=== PATIENT | male | born 1995 | race Caucasian/White ===

== ENCOUNTER 2019-10-09 03:03 | Emergency (ER) | payer SELFPAY ==
[2019-10-09 03:08] VITALS: BP 172/98; PULSE 79; RESP 14; TEMP 36.4; O2SAT 99; BMI 27.1
--- NOTE | 2019-10-09 03:11 | ED_ITS ---
HPI - Dental/Oral General: Chief complaint: Dental/Oral Stated complaint: dental pain Time Seen by Provider: 10/09/19 03:10 History of Present Illness: HPI Narrative: Cain is a 24-year-old male comes in complaining of left upper dental pain. The patient states the pain is been present for the past 2 days and getting progressively worse. He denies any naus ea or vomiting or facial swelling. Denies any difficulty swallowing, difficulty breathing, change to his voice or feeling of deep space infection. Associated symptoms: Denies ear or mastoid pain, fever(s), odynophagia or tongue swelling Review of Systems Const: Denies: fever(s), chills, body aches, fatigue, malaise or diaphoresis Eyes: Denies: change in vision, blurry vision, blind spots or photophobia ENMT: Reports: other (See HPI); Denies: throat pain, odynophagia, hoarseness, swelling of lips/tongue, ear or mastoid pain, ear discharge, change in hearing or nasal discharge Card: Denies: chest pain, palpitations, irregular heart rhythm, edema, lightheadedness, syncope, pre-syncope, dyspnea on exertion or orthopnea Resp: Denies: dyspnea, productive cough, non-productive cough, wheezing, hemoptysis or chest congestion GI: Denies: abdominal pain, nausea, vomiting, hematemesis, coffee ground emesis, heartburn, diarrhea, constipation, GI cramping, hematochezia or melena : Denies: flank pain, dysuria, urinary frequency, urinary urgency or hematuria Musc: Denies: neck pain, back pain, extremity pain, extremity swelling, joint pain, joint swelling, joint redness, joint warmth or joint stiffness Skin/Breast: Denies: rash, pruritus, erythema, skin tenderness or jaundice Neuro: Denies: headache(s), numbness in extremities, weakness in extremities, sensory changes, lack of coordination, difficulty walking, dizziness, vertigo, confusion or Slurred speech present Paul/Lymph: Denies: easy bruising, easy bleeding, petechiae, purpura or enlarged lymph nodes All/Imm: Denies: urticaria, throat swelling, tongue swelling, facial swelling or acute wheezing [facility] ED PFSH: Medical History (Updated 10/09/19 @ 03:14 by Lindsay Hewitt) No pertinent past medical history Surgical History (Updated 10/09/19 @ 03:13 by Lindsay Hewitt) No history of previous surgery Social History Smoking and tobacco status: current every day smoker Physical Exam Const: COMMON NORMALS: no acute distress, patient oriented x3, no limitations, healthy appearing and well nourished GENERAL APPEARANCE: cooperative, well kempt and well developed HENMT: COMMON NORMALS: normocephalic, atraumatic, hearing grossly normal bilaterally, external ears normal, EAC's normal, Normal external nose present and moist oral mucous membranes HEAD & SCALP: normocephalic and atraumatic NOSE: Normal external nose present and Normal nares present EXTERNAL EAR: Yes external ears normal EXTERNAL AUDITORY CANAL: EAC's normal MOUTH: Normal oral and palatal mucosa present, lip normal and tongue normal TEETH & GINGIVA IMAGES: 1. Dental caries with tenderness to palpation. No evidence of dental abscess. Eye: COMMON NORMALS: Equal, round and reactive pupils present, EOMs intact bilaterally, conjunctivae normal and no scleral icterus GENERAL EYE: appearance normal, both eyes and all related structures ALIGNMENT: Yes alignment normal PERIORBITAL: periorbital findings normal EYELID: eyelids normal CONJUNCTIVA: Yes conjunctivae normal SCLERA: sclerae normal PUPIL: Yes Equal, round and reactive pupils present Neck/C-Spine: COMMON NORMALS: full ROM, no lymphadenopathy, supple, no meninge al signs and no JVD GENERAL: Yes normal visual inspection and Yes trachea midline Chest: COMMONS NORMALS: normal inspection of the chest and normal palpation of entire chest wall Resp: COMMON NORMALS: normal respiratory effort, No retractions, No use of accessory muscles and clear to auscultation bilaterally EFFORT & INSPECTION: Yes able to speak in complete sentences and Yes symmetric chest movement AUSCULTATION: clear to auscultation bilaterally, no crackles, no rales, no rhonchi and no wheezes Cardio: COMMON NORMALS: no JVD, regular rate, regular rhythm, S1 normal heart sound present, S2 normal heart sound present, No gallops present (Cardio), No clicks present (Cardio), No murmurs present (Cardio) and No rub (Cardio) RATE: regular rate RHYTHM: regular rhythm HEART SOUNDS: S1 normal heart sound present and S2 normal heart sound present GI: COMMON NORMALS: Soft to palpation and No hepatosplenomegaly present PALPATION: Yes Soft to palpation, No Tenderness to palpation present (GI), No Guarding due to palpation present (GI), No Rigid due to palpation, Yes No hepa tosplenomegaly present, No Hernia present, No Palpable mass present and No Pulsatile mass present : COMMON NORMALS: Yes no CVA tenderness BLADDER/KIDNEY EXAM: Yes no CVA tenderness Back/Pelvis: COMMON NORMALS: no CVA tenderness, thoracic and lumbar spine normal to inspection, no thoracic nor lumbar tenderness and thoraco-lumbar ROM normal Extremity: COMMON NORMALS: normal to inspection, full ROM, capillary refill normal, no joint enlargement, no clubbing, cyanosis or edema and no calf tenderness Neuro: COMMON NORMALS: patient oriented x3, CN's II-XII intact bilaterally, moves all extremities, no focal motor deficits and no sensory deficits noted MENINGEAL SIGNS: Yes no meningeal signs SPEECH: speech normal Psych: COMMON NORMALS: mental status grossly normal, Normal thought process present, cooperative, normal affect, speech normal and activity/motor behavior normal APPEARANCE: Yes well kempt SPEECH: Yes normal speech THOUGHT PROCESS: Normal thought process present Skin: COMMON NORMALS: no rashes or lesions noted, turgor normal, no jaundice, no petechiae and no mottling GENERAL SKIN EXAM: no rashes or lesions noted and turgor normal Course Vital Signs: Vital signs: Vital Signs Temperature 97.6 F 10/09/19 03:08 Pulse Rate 79 10/09/19 03:08 Respiratory Rate 14 10/09/19 03:08 Blood Pressure 172/98 10/09/19 03:08 Pulse Oximetry 99 10/09/19 03:08 MDM - Dental/Oral MDM Narrative: Medical decision making narrative: Patient comes in with a pain in his tooth but no evidence of dental abscess. There is no sign of Royal angina, deep space infection, airway issue or otherwise. Patient would like something for pain before he goes. I will also place him on antibiotics. He understands reasons for which to return but at this time he is feeling better and would like to be discharged. Discharge Plan Discharge Patient Disposition: Home, Self-Care Clinical Impression: Toothache, Dental caries Condition: Stable Prescriptions: New clindamycin HCl [Cleocin HCl] 150 mg capsule 300 mg PO Q6H 10 Days Qty: 80 RF: 0 Discharge Orders: Discharge Order (Routine); Ordered 10/09/19 Ordered By: Lindsay Hewitt Referrals: Holland Ryan MD [Primary Care Provider] - 1-3 days Discharge Diet: Advance as tolerated Discharge Activity: Increase activity as tolerated Patient Instructions: Dental Caries (ED), Toothache (ED) Activity Restrictions/Additional Instructions: Please return to the ER immediately for any of the signs or symptoms listed on y our discharge instruction sheets, worsening/changing of your symptoms, you are not getting better as quickly as expected, or for ANY other cause or concerns. Please return to the ER for increased pain, facial swelling, fever, difficulty swallowing, vomiting, or for any other cause for concern. 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
[2019-10-09] MEDS: HYDROcodone-acetaminophen 5-325 mg Tablet 1 TAB PO (03:30)
[2019-10-09] MEDS: clindamycin 150 mg Capsule 300 MG PO (03:30)
[2019-10-09 03:33] VITALS: PULSE 78; RESP 18; O2SAT 99
== END 2019-10-09 03:34 | disposition home or self-care (01) ==
PROVIDERS: Emergency Provider Emergency Medicine
DX: K02.9 Dental caries, unspecified (principal); F17.210 Nicotine dependence, cigarettes, uncomplicated
CPT/HCPCS: 12345; 99281; 99283

== ENCOUNTER 2019-10-27 08:56 | Observation (INO) | payer SELFPAY ==
[2019-10-27] VITALS (18 sets, daily range): BP systolic 91–116; BP diastolic 46–73; PULSE 52–97; RESP 6–19; TEMP 36.6–37; O2SAT 95–99; BMI 27.1
--- NOTE | 2019-10-27 09:04 | ECG_ITS ---
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 Measurements Intervals [place] Rate: 70 P: 53 SD: 158 QRS: 66 QRSD: 117 T: 44 QT: 392 QTc: 424 Interpretive Statements SINUS RHYTHM MODERATE INTRAVENTRICULAR CONDUCTION DELAY [110+ ms QRS DURATION] No previous ECG available for comparison Electronically Signed On 10-27-2019 16:22:26 CDT by Damaris Sánchez M.D. [id number]
--- NOTE | 2019-10-27 09:04 | XR_ITS ---
WS: [id number] XR chest 1V portable [id number] REASON FOR EXAM: od FINDINGS: The heart and mediastinal interfaces are normal. The lung lindsey are well aerated. No pneumonia, pleural effusion, pulmonary edema, no evidence of mas s effect. The hilum and apices are normal. XR/XR chest 1V portable [id number] IMPRESSION: Negative chest for active pathology.
--- NOTE | 2019-10-27 09:05 | W.ED.OVERDOS ---
HPI - Overdose General: Chief Complaint: Overdose Stated Complaint: AMS Time Seen by Provider: 10/27/19 09:04 History of Present Illness: HPI Narrative: Patient was found unresponsive on the floor by his girlfriend. Upon EMS arrival the patient was breathing very shallow and had O2 sats in the 50s. Patient was administered Narcan ?2. He is now awake and alert but somewhat confused and slow to respond. Patient denies ingestion of any opiates however the patient's mother says that he has a long history of drug abuse. MD complaint: accidental overdose Onset (ago): unknown Timing confirmed by: other Review of Systems General: Reports: ROS unobtainable due to mental status PFS ED PFSH: Medical History No pertinent past medical history Surgical History No history of previous surgery Social History Smoking and tobacco status: current every day smoker Physical Exam Const: COMMON NORMALS: no acute distress, average body habitus and well nourished EXAM LIMITATIONS: altered mental status GENERAL APPEARANCE: disheveled ORIENTATION/CONSCIOUSNESS: Yes awake, Yes oriented to person and Yes oriented to place HENMT: COMMON NORMALS: normocephalic, atraumatic, hearing grossly normal bilaterally, external ears normal, EAC's normal, TM's normal bilaterally, Normal external nose present, Normal nasal mucous membranes and turbinates present, moist oral mucous membranes, oropharynx normal, dentition normal and gingiva normal HEAD & SCALP: normocephalic and atraumatic NOSE: Normal external nose present and Normal nasal mucous membranes and turbinates present EXTERNAL EAR: Yes external ears normal EXTERNAL AUDITORY CANAL: EAC's normal TYMPANIC MEMBRANE: TM's normal bilaterally Eye: COMMON NORMALS: Equal, round and reactive pupils present, EOMs intact bilaterally, conjunctivae normal, no scleral icterus, no papilledema, normal visual lindsey by confrontation and fundi normal bilaterally CONJUNCTIVA: Yes conjunctivae normal PUPIL: Yes Equal, round and reactive pupils present DIRECT OPHTHALMOSCOPY: Yes no papilledema and Yes fundi normal bilaterally Neck/C-Spine: COMMON NORMALS: full ROM, no lymphadenopathy, supple, no meningeal signs, no JVD, Thyroid normal and No carotid bruits THYROID: Thyroid normal Chest: COMMONS NORMALS: normal inspection of the chest and normal palpation of entire chest wall Resp: COMMON NORMALS: normal respiratory effort, No retractions, No use of accessory muscles, clear to auscultation bilaterally and percussion normal AUSCULTATION: clear to auscultation bilaterally PERCUSSION: percussion normal Cardio: COMMON NORMALS: no JVD, regular rate, regular rhythm, S1 normal heart sound present, S2 normal heart sound present, No gallops present (Cardio), No clicks present (Cardio), No murmurs present (Cardio), No rub (Cardio) and Peripheral pulses 2+ throughout RATE: regular rate RHYTHM: regular rhythm HEART SOUNDS: S1 normal heart sound present and S2 normal heart sound present PERIPHERAL PULSES: Peripheral pulses 2+ throughout GI: COMMON NORMALS: Normal to inspection, nondistended, normoactive bowel sounds present, Soft to palpation, non-tender, No hepatosplenomegaly present, no masses and no bruits PALPATION: Yes Soft to palpation and Yes No hepatosplenomegaly present Back/Pelvis: COMMON NORMALS: thoracic and lumbar spine normal to inspection, no thoracic nor lumbar tenderness, thoraco-lumbar ROM normal and straight leg raise negative bilaterally Extremity: COMMON NORMALS: normal to inspection, full ROM, capillary refill normal, no joint enlargement, no clubbing, cyanosis or edema, no calf tenderness and no pedal edema Neuro: COMMON NORMALS: moves all extremities, no focal motor deficits and no sensory deficits noted SENSORIUM/ORIENTATION: Yes oriented to person, Yes oriented to place and Yes somnolent MENINGEAL SIGNS: Yes no meningeal signs Skin: COMMON NORMALS: no rashes or lesions noted, no wounds, no jaundice and no mottling GENERAL SKIN EXAM: no rashes or lesions noted Course Vital Signs: Vital signs: Vital Signs Temperature 97.9 F 10/27/19 08:56 Pulse Rate 58 L 10/27/19 12:18 Respiratory Rate 18 10/27/19 12:18 Blood Pressure 91/73 10/27/19 12:18 Pulse Oximetry 99 10/27/19 12:18 MDM - Overdose Lab Data: Labs: Lab Results 10/27/19 10/27/19 10/27/19 Range/Units 08:45 08:45 12:12 WBC 14.2 H (4.0-10.0) 10^3/ uL RBC 5.00 (4.1-5.3) 10^6/u L Hgb 14.6 (11.7-16.6) g/dL Hct 44.4 (42.0-52.0) % MCV 88.8 (80-94) fL MCH 29.2 (28.0-34.0) pg MCHC 32.9 (30.0-36.0) g/dL RDW 11.9 L (12.1-15.1) % Plt Count 283 (130-400) 10^3/c mm MPV 11.1 H (7.4-10.4) fL Neut % (Auto) 59.1 % Lymph % (Auto) 31.9 % Haskell % (Auto) 6.6 % Eos % (Auto) 1.4 % Baso % (Auto) 0.4 % Neut # (Auto) 8.3 H (1.8-7.7) 10^3/u L Lymph # (Auto) 4.5 (0.8-4.8) 10^3/u L Haskell # (Auto) 0.9 (0.2-0.9) 10^3/u L Eos # (Auto) 0.2 (0.0-0.8) 10^3/u L Baso # (Auto) 0.1 (0.0-0.1) 10^3/u L Nucleated RBC % (a uto) 0 % Nucleated RBCs # 0.0 /100WBC Sodium 134 L (136-145) mmol/L Potassium 3.4 L (3.5-5.1) mmol/L Chloride 96 L (98-107) mmol/L Carbon Dioxide 26 (22-29) mmol/L Anion Gap 15.4 (5-19) BUN 10 (6-20) mg/dL Creatinine 1.1 (0.7-1.2) mg/dL GFR Calculation 82.2 L (90-130) mL/min Glucose 301 H (65-115) mg/dL Calculated Osmolal ity 285 (285-295) mOsm/k g Calcium 8.5 (8.5-10.5) mg/dL Total Bilirubin 0.7 (0.15-1.2) mg/dL AST 21 (0-40) U/L ALT 28 (0-41) U/L Alkaline Phosphata se 80 (40-130) IU/L Total Protein 6.7 (6.6-8.7) g/dL Albumin 3.8 (3.5-5.2) g/dL Globulin 2.9 (1.3-4.6) g/dL Urine Color Yellow (Yellow) Urine Appearance Clear (CLEAR) Urine pH 5 (5-7) Ur Specific Gravit y 1.030 (1.005-1.030) Urine Protein Neg (Negative) Urine Glucose (UA) 2+ (Normal) Urine Ketones Negative (Negative) Urine Blood Neg (Negative) Urine Nitrate Negative (Negative) Urine Bilirubin Neg (NEGATIVE) Urine Urobilinogen Norm (Negative) mg/dL Ur Leukocyte Fiorella ase Negative (Negative) Salicylates < 0.3 L (3-10) mg/dL Urine Opiates Scre en (Negative) ng/mL Acetaminophen < 5.0 L (10-30) ug/mL Ur Barbiturates Sc reen (Negative) ng/mL Ur Phencyclidine S crn (Negative) ng/mL Ur Amphetamines Sc reen (Negative) ng/mL U Benzodiazepines Scrn (Negative) ng/mL Urine Cocaine Scre en (Negative) ng/mL U Marijuana (THC) Screen (Negative) ng/mL Ethyl Alcohol < 10 (0-10) mg/dL 10/27/19 Range/Units 12:12 WBC (4.0-10.0) 10^3/ uL RBC (4.1-5.3) 10^6/u L Hgb (11.7-16.6) g/dL Hct (42.0-52.0) % MCV (80-94) fL MCH (28.0-34.0) pg MCHC (30.0-36.0) g/dL RDW (12.1-15.1) % Plt Count (130-400) 10^3/c mm MPV (7.4-10.4) fL Neut % (Auto) % Lymph % (Auto) % Haskell % (Auto) % Eos % (Auto) % Baso % (Auto) % Neut # (Auto) (1.8-7.7) 10^3/u L Lymph # (Auto) (0.8-4.8) 10^3/u L Haskell # (Auto) (0.2-0.9) 10^3/u L Eos # (Auto) (0.0-0.8) 10^3/u L Baso # (Auto) (0.0-0.1) 10^3/u L Nucleated RBC % (a uto) % Nucleated RBCs # /100WBC Sodium (136-145) mmol/L Potassium (3.5-5.1) mmol/L Chloride (98-107) mmol/L Carbon Dioxide (22-29) mmol/L Anion Gap (5-19) BUN (6-20) mg/dL Creatinine (0.7-1.2) mg/dL GFR Calculation (90-130) mL/min Glucose (65-115) mg/dL Calculated Osmolal ity (285-295) mOsm/k g Calcium (8.5-10.5) mg/dL Total Bilirubin (0.15-1.2) mg/dL AST (0-40) U/L ALT (0-41) U/L Alkaline Phosphata se (40-130) IU/L Total Protein (6.6-8.7) g/dL Albumin (3.5-5.2) g/dL Globulin (1.3-4.6) g/dL Urine Color (Yellow) Urine Appearance (CLEAR) Urine pH (5-7) Ur Specific Gravit y (1.005-1.030) Urine Protein (Negative) Urine Glucose (UA) (Normal) Urine Ketones (Negative) Urine Blood (Negative) Urine Nitrate (Negative) Urine Bilirubin (NEGATIVE) Urine Urobilinogen (Negative) mg/dL Ur Leukocyte Fiorella ase (Negative) Salicylates (3-10) mg/dL Urine Opiates Scre en Negative (Negative) ng/mL Acetaminophen (10-30) ug/mL Ur Barbiturates Sc reen Negative (Negative) ng/mL Ur Phencyclidine S crn Negative (Negative) ng/mL Ur Amphetamines Sc reen Positive H (Negative) ng/mL U Benzodiazepines Scrn Negative (Negative) ng/mL Urine Cocaine Scre en Negative (Negative) ng/mL U Marijuana (THC) Screen Positive H (Negative) ng/mL Ethyl Alcohol (0-10) mg/dL Discharge Plan Discharge Patient Disposition: Admitted As Inpatient Clinical Impression: Altered level of consciousness, Substance abuse, Acute hyperglycemia Condition: Fair Coding Level of Care Code ED Adult Probation Officer for Chg Fwd Exam Comprehensive
[2019-10-27] MEDS: sodium chloride 0.9% 1,000 ML 999 ML IV (09:19)
[2019-10-27] MEDS: ondansetron 2 mg/ML SDV 2 mL 4 MG IVP ×2 (09:19→13:09)
[2019-10-27 09:35] LABS: Basophils # 0.1 10^3/uL (0.0-0.1); Basophils % 0.4 %; Eosinophils # 0.2 10^3/uL (0.0-0.8); Eosinophils % 1.4 %; Hematocrit 44.4 % (42.0-52.0); Hemoglobin 14.6 g/dL (11.7-16.6); Lymphocytes # 4.5 10^3/uL (0.8-4.8); Lymphocytes % 31.9 %; Mean Corpuscular HGB Conc 32.9 g/dL (30.0-36.0); Mean Corpuscular Hemoglobin 29.2 pg (28.0-34.0); Mean Corpuscular Volume 88.8 fL (80-94); Mean Platelet Volume 11.1 fL (7.4-10.4); Monocytes # 0.9 10^3/uL (0.2-0.9); Monocytes % 6.6 %; Neutrophils # 8.3 10^3/uL (1.8-7.7); Neutrophils % 59.1 %; Nucleated Red Blood Cells % 0 %; Platelet Count 283 10^3/cmm (130-400); Red Cell Distribution Width 11.9 % (12.1-15.1); White Blood Count 14.2 10^3/uL (4.0-10.0)
--- NOTE | 2019-10-27 09:43 | PC.NURSE ---
This RN went to patients room to try to obtain urine sample. Patient unable to provide urine sample. This RN explained to patient that I will need to cath him for a urine sample if he is unable to provide one. Patient states we are not going to cath him. Patient attempted to provide urine sample but was unable to. Patient request water to try to provide urine sample. Physician notified.
[2019-10-27 09:46] LABS: Alanine Aminotransferase 28 U/L (0-41); Albumin Level 3.8 g/dL (3.5-5.2); Alkaline Phosphatase 80 IU/L (40-130); Anion Gap 15.4 (5-19); Aspartate Amino Transferase 21 U/L (0-40); Blood Urea Nitrogen 10 mg/dL (6-20); Calcium 8.5 mg/dL (8.5-10.5); Carbon Dioxide 26 mmol/L (22-29); Chloride 96 mmol/L (98-107); Globulin 2.9 g/dL (1.3-4.6); Glomerular Filtration Rate 82.2 mL/min (90-130); Glucose 301 mg/dL (65-115); Osmolality Calculated 285 mOsm/kg (285-295); Potassium 3.4 mmol/L (3.5-5.1); Sodium 134 mmol/L (136-145); Total Bilirubin 0.7 mg/dL (0.15-1.2); Total Protein 6.7 g/dL (6.6-8.7)
[2019-10-27 10:23] LABS: Acetaminophen < 5.0 ug/mL (10-30); Alcohol Level < 10 mg/dL (0-10); Salicylate < 0.3 mg/dL (3-10)
--- NOTE | 2019-10-27 12:19 | PC.NURSE ---
Patient requested a sandwich. [place] obtained and given to patient. Patient has no other needs at this time. Will continue to monitor patient.
[2019-10-27 12:20] LABS: Add Urine Microscopic? NO
[2019-10-27 12:28] LABS: Bilirubin Urine Neg (NEGATIVE); Blood Urine Neg (Negative); Glucose Urine UA 2+ (Normal); Ketones Urine Negative (Negative); Leukocyte Esterase Urine Negative (Negative); Nitrate Urine Negative (Negative); Protein Urine Neg (Negative); Urine Appearance Clear (CLEAR); Urine Color Yellow (Yellow); Urobilinogen Urine Norm (Negative); pH Urine 5 (5-7)
[2019-10-27 12:30] LABS: Amphetamines Screen Urine Positive (Negative); Barbiturates Screen Urine Negative (Negative); Benzodiazepines Screen Urine Negative (Negative); Cocaine Screen Urine Negative (Negative); Opiate Screen Urine Negative (Negative); PCP Screen Urine Negative (Negative); THC Screen Urine Positive (Negative)
[2019-10-27] MEDS: sodium chloride 0.9% 1,000 ML 150 ML IV (13:03)
--- NOTE | 2019-10-27 13:10 | PC.NURSE ---
Performed accucheck per hospitalist, blood glucose is 98. Hospitalist and nurse are aware.
[2019-10-27 13:12] LABS: Glucose Point of Care 98 mg/dL (70-110)
--- NOTE | 2019-10-27 13:52 | P.HP_ITS ---
Providers/Chief Complaint Admitting Physician: Niesha Mccoy MD Primary Care Provider: None Chief Complaint: AMS History of Present Illness Cain Min is a 24 year old male with PMHx of Substance abuse, Chronic smoker, presents via EMS after being found unresponsive by his girlfriend for an unknown period of time. By EMS report patient was quite hypoxic on their arrival, with saturation in the 70s, difficult to arouse so given a dose of Narcan with minimal response, given a second dose of Narcan which seemed to wake him up and he was noted to have an episode of emesis. He was placed on 2 L nasal cannula and brought to the ER for further management. He is awake, mother is at the bedside, stable vital signs currently and is on room air though is somewhat lethargic and does not seem to recall much in the way of details at this time. Mother was not with him so was unable to provide collateral information as to earlier events. Patient has a documented history of met hamphetamine abuse though he vehemently denies use currently. He admits to THC use, alcohol use as well as chronic smoking, 1 pack/day. Social situation appears to be quite complicated, has been homeless before and is currently living in a motel. So far has received Tylenol, Zofran and some IV fluid hydration Had to be straight catheterized in order to obtain a urine sample. Labs indicate leukocytosis with a white count of 14.2 which is suspected to be reactive, normal hemoglobin at 14.6, potassium of 3.4, normal renal function, normal anion gap, blood glucose of 301, negative alcohol screen, negative salicylates and acetaminophen, urine drug screen positive for THC and amphetamines. Chest x-ray is unremarkable. I have requested an Accu-Chek is a suspect that hyperglycemia is lab error, this is 98. Patient is requesting something to eat. Anticipate that he may become agitated and/or aggressive secondary to methamphetamine intoxication and with altered mental status will need close monitoring so will admit to ICU. Review of Systems Const: Reports: diaphoresis; Denies: fever(s), chills or fatigue Eyes: Denies: change in vision ENMT: Reports: dry mouth; Denies: odynophagia Card: Denies: chest pain, swelling of feet/ankles or lightheadedness Resp: Denies: dyspnea, productive cough or non-productive cough GI: Reports: nausea and vomiting; Denies: abdominal pain, hematemesis, diarrhea or hematochezia : Denies: dysuria, urinary frequency or hematuria Musc: Denies: back pain Skin/Breast: Denies: rash Neuro: Denies: numbness in extremities or weakness in extremities Psych: Denies: anxiety Medications/Allergies Home Medications Medication Instructions Recorded Confirmed Last Taken Type No Known Home Medications 10/27/19 10/27/19 Unknown History Allergies Allergy/AdvReac Type Severity Reaction Status Date / Time No Known Allergies Allergy Verified 10/27/19 09:05 PFSH Acute PFSH: Medical History (Updated 10/27/19 @ 14:14 by Niesha Mccoy MD) Substance abuse Surgical History (Updated 10/27/19 @ 14:02 by Niesha Mccoy MD) H/O elbow surgery Left Hx of tonsillectomy Family History (Updated 10/27/19 @ 14:04 by Niesha Mccoy MD) Mother Thyroid disease Father Ulcerative colitis Denies family history of Diabetes CAD (coronary artery disease) Cancer Hypertension Stroke Social History (Updated 10/27/19 @ 14:05 by Niesha Mccoy MD) Smoking and tobacco status: current every day smoker cigarettes Packs smoked per day: 1 Alcohol intake: current Alcohol intake frequency: 3 or more drinks per day Alcohol type: beer Substance/Drug Use: current Substance/Drug use type: Marijuana and Amphetamines Housing: Homeless Vitals/I&O/Wt Last Vital Signs Temp 97.9 F 10/27/19 08:56 Pulse 58 L 10/27/19 12:18 Resp 18 10/27/19 12:18 BP 91/73 10/27/19 12:18 Pulse Ox 99 10/27/19 12:18 10/26/19 10/27/19 10/27/19 22:59 06:59 14:59 Intake Total 1000 / 1000 Balance 1000 / 1000 Weight last 48 hrs Weight 90.718 kg Physical Exam Const: COMMON NORMALS: no acute distress and patient oriented x3 GENERAL APPEARANCE: comfortable; not ill appearing and not diaphoretic ORIENTATION/CONSCIOUSNESS: Yes awake and Yes lethargic HENMT: COMMON NORMALS: normocephalic, atraumatic, hearing grossly normal bilaterally and moist oral mucous membranes HEAD & SCALP: normocephalic and atraumatic Eye: COMMON NORMALS: Equal, round and reactive pupils present, EOMs intact bilaterally and conjunctivae normal CONJUNCTIVA: Yes conjunctivae normal PUPIL: Yes Equal, round and reactive pupils present Neck/C-Spine: COMMON NORMALS: full ROM GENERAL: Yes normal visual inspection and Yes trachea midline Chest: CHEST: Yes Symmetrical chest wall rise Resp: COMMON NORMALS: normal respiratory effort, No retractions, No use of accessory muscles and clear to auscultation bilaterally EFFORT & INSPECTION: Yes able to speak in complete sentences, Yes symmetric chest movement and No tachypneic AUSCULTATION: clear to auscultation bilaterally OTHER: -on RA Cardio: COMMON NORMALS: regular rate, regular rhythm, S1 normal heart sound present, S2 normal heart sound present and No murmurs present (Cardio) RATE: regular rate RHYTHM: regular rhythm HEART SOUNDS: S1 normal heart sound present and S2 normal heart sound present GI: COMMON NORMALS: Normal to inspection, nondistended, normoactive bowel sounds present, Soft to palpation and non-tender PALPATION: Yes Soft to palpation Extremity: COMMON NORMALS: normal to inspection, full ROM, no clubbing, cyanosis or edema and no pedal edema Neuro: COMMON NORMALS: patient oriented x3, moves all extremities, no focal motor deficits and no sensory deficits noted SENSORIUM/ORIENTATION: Yes lethargic Psych: COMMON NORMALS: mental status grossly normal, Normal thought process present, cooperative and speech normal SPEECH: Yes normal speech MOOD & AFFECT: Yes Blunted affect present THOUGHT PROCESS: Normal thought process present Skin: COMMON NORMALS: no rashes or lesions noted, no jaundice, no petechiae and no mottling GENERAL SKIN EXAM: no rashes or lesions noted Data : 10/27/19 08:45 10/27/19 08:45 A&P Assessment and plan (1) Altered level of consciousness: -reportedly was found unresponsive after girlfriend called EMS, patient cannot recall further details. Received dose of Narcan with minimal change. Required a second dose after which he came to and had some emesis -UDS positive for amphetamines and THC; admits to marijuana use but vehemently denies meth use. Prior hx of methamphetamine abuse per review of old [facility] and per mother at bedside -EtOH, salicylates, acetaminophen negative -suspect altered mental status is substance abuse related -no clinical evidence of infection, leukocytosis is likely reactive; afebrile, hemodynamically stable, UA negative, CXR unremarkable -IVF hydration -antiemetics PRN -regular diet as tolerated -more awake, somewhat disoriented and lethargic; monitor mental status -supplemental oxygen as needed, monitor respiratory status Status: Acute (2) Substance abuse: -hx of methamphetamine abuse, THC use, chronic smoker -nicotine replacement therapy Status: Chronic (3) Acute hyperglycemia: -suspect lab error as per chemistry BG-301, POC check-98; no prior hx of hyperglycemia or hx of DM -check A1c in AM Status: Resolved Additional A&P Information -low risk for DVT so no need for ppx; encourage ambulation -regular diet as tolerated -Dispo: living in motel -Code status: FULL code -ICU admission due to need for close monitoring of mental status, anticipate agitation and aggression based on + amphetamine use Attestations Medical Necessity Statement*: Cain Min's hospital stay will be less t hernandez 2 midnights for management of altered mental status secondary to substance abuse, s/p Narcan, needs close monitoring of mental status and respiratory status. Time Spent in Patient Care: 16 - 35 minutes (>than 50% of time spent in counselling and/or direct pt care on unit) . Coding Level of Care Code Acute Bolt Man for Lisa Ochoa Diagnoses Altered level of consciousness R40.4 Substance abuse F19.10 Acute hyperglycemia R73.9
[2019-10-27 14:20] LABS: Creatine Phosphokinase 66 U/L (39-308)
--- NOTE | 2019-10-27 16:26 | PC.NURSE ---
PATIENT SLIGHTLY DISORENTATED TO SITUATION. DENIES HEADACHE AT THIS TIME, STATES THAT HE IS NOT SURE OF THE DATE AND TIME. HIS LAST MEMORY WAS OF Thu GETTING READY TO DO SOME PAVING . HE IS DROWSY, HE DENIES HAAVING A GIRLFRIEND BUT A GIRL NAMED RACIEL BROUGHT HIM HIS PHONE AND STATES SHE IS HIS GIRLFRIEND. HIS PHONE WAS BROUGHT TO HIM AT 1630 BUT HE SEEMED MORE INTERESTED IN SLEEPING. HE DENIES CURRENT NAUSEA BUT ADMITS TO HAVING IT FOR SEVERAL DAYS. PATIENT CAME TO ROOM WITH PUDDING, SUBWAY AND CHIPS. I GAVE HIM A SPRITE AND WATER AND TOLD HIM TO GO SLOW.
[2019-10-27] MEDS: nicotine 14 mg Patch 1 PATCH TRANSDERMA (16:41)
[2019-10-27] MEDS: sodium chloride 0.9% 1,000 ML 100 ML IV (16:42)
--- NOTE | 2019-10-27 17:01 | PC.NURSE ---
SPOKE WITH MOTHER AT LENGTH. PATIENT TOOK HIS CLINDAMYCIN INTERMINTENTLY IN EARLY OCTOBER. HE HAS COME UP WITH THE NAUSEA, VOMITTING, HEADACHES AND FEVERS IN THE LAST WEEK OR MORE AND THEN WAS FOUND IN THIS SITUATION. FAMILY SAYS HE LIVES IN A NEW PLACE EVERKY FEW DAYS IT SEEMS SO WE RULED OUT A CO POISONING SENNARSUSHMA , CONCERNS FOR COVID, MENENGITIS, OR A TICK BORN ILLNESS HAVE BEEN EXPRESSED. PATIENT RESTING COMFORTABLY AT THIS TIME , BRADICARDIC ,NO NAUSEA, NO FEVER. SIGHTLY DISORIENTATED .
[2019-10-28] VITALS (9 sets, daily range): BP systolic 98–113; BP diastolic 58–67; PULSE 57–75; RESP 12–18; TEMP 37.1–37.3; O2SAT 97–98
[2019-10-28] MEDS: sodium chloride 0.9% 1,000 ML 100 ML IV (01:42)
[2019-10-28 04:22] LABS: Basophils # 0.1 10^3/uL (0.0-0.1); Basophils % 0.4 %; Eosinophils # 0.2 10^3/uL (0.0-0.8); Eosinophils % 1.6 %; Hematocrit 41.2 % (42.0-52.0); Hemoglobin 13.6 g/dL (11.7-16.6); Lymphocytes # 3.6 10^3/uL (0.8-4.8); Lymphocytes % 32.6 %; Mean Corpuscular Volume 90.7 fL (80-94); Mean Platelet Volume 11.5 fL (7.4-10.4); Monocytes # 0.8 10^3/uL (0.2-0.9); Monocytes % 7.5 %; Neutrophils # 6.4 10^3/uL (1.8-7.7); Neutrophils % 57.4 %; Nucleated Red Blood Cells % 0 %; Platelet Count 218 10^3/cmm (130-400); Red Blood Count 4.54 10^6/uL (4.1-5.3); Red Cell Distribution Width 12.1 % (12.1-15.1); White Blood Count 11.1 10^3/uL (4.0-10.0)
[2019-10-28 04:40] LABS: Anion Gap 11.9 (5-19); Blood Urea Nitrogen 7 mg/dL (6-20); Calcium 8.5 mg/dL (8.5-10.5); Carbon Dioxide 27 mmol/L (22-29); Chloride 105 mmol/L (98-107); Glomerular Filtration Rate 138.6 mL/min (90-130); Glucose 100 mg/dL (65-115); Magnesium 2.1 mg/dL (1.7-2.3); Osmolality Calculated 286 mOsm/kg (285-295); Potassium 3.9 mmol/L (3.5-5.1); Sodium 140 mmol/L (136-145)
[2019-10-28 04:42] LABS: Estmated Average Glucose 108; Hemoglobin A1C 5.4 % (4.0-6.0)
--- NOTE | 2019-10-28 05:13 | PC.NURSE ---
Shift Summary Patient rested well tonight. No complaints of pain. Neuro status intact. Alert and oriented x4. Afebrile.
--- NOTE | 2019-10-28 08:34 | P.DS_ITS ---
Discharge Providers Date of Admission: 10/27/19 13:00 Date of Discharge: October 28, 2019 Attending Provider at Admission: Niesha Mccoy MD Attending Provider at Discharge: Niesha Mccoy MD Diagnoses at Discharge Discharge Diagnosis (1) Altered level of consciousness: Status: Resolved Problem details: -reportedly was found unresponsive after girlfriend called EMS, patient cannot recall further details. Received dose of Narcan with minimal change. Required a second dose after which he came to and had some emesis -UDS positive for amphetamines and THC; admits to marijuana use but vehemently denies meth use. Prior hx of methamphetamine abuse per review of old [facility] records and per mother at bedside -EtOH, salicylates, acetaminophen negative -suspect altered mental status is substance abuse related -no clinical evidence of infection, leukocytosis is likely reactive and is decreased this AM; afebrile, hemodynamically stable, UA negative, CXR unremarkable -IVF hydration; d/c -antiemetics PRN -regular diet as tolerated -currently alert and oriented x 3, ambulatory -supplemental oxygen not needed (2) Substance abuse: Status: Chronic Problem details: -hx of methamphetamine abuse, THC use, chronic smoker -nicotine replacement therapy (3) Acute hyperglycemia: Status: Resolved Problem details: -suspect lab error as per chemistry BG-301, POC check-98; no prior hx of hyperglycemia or hx of DM. Repeat BMP shows normal BG this AM -A1c-5.4 Reason for Visit Reason for Visit: AMS Hospital Course Hospital Course: Patient was admitted to ICU for close monitoring given methamphetamine use, noted altered mental status and risk of agitation/aggres eddie. He was noted to have an increased blood sugar on his chemistry which appears to be a lab error as on repeat labs this morning and on [id number] checks blood sugar has been within normal limits. He has no prior history of hyperglycemia or diabetes, A1c is also within normal limits. Altered mental status has resolved, he is currently alert and oriented x3, tolerating oral intake without difficulty, hemodynamically stable, on room air. He is ambulatory and voiding without difficulty. He was noted to have some leukocytosis with no clear infectious etiology, this is likely reactive and has decreased this morning. He has been afebrile throughout his hospital stay. Discharge Summary: -Patient to follow up with primary care provider within 1 week Physical Exam Const: COMMON NORMALS: no acute distress, patient oriented x3 and alert GENERAL APPEARANCE: cooperative and comfortable; not ill appearing and not diaphoretic ORIENTATION/CONSCIOUSNESS: Yes awake HENMT: COMMON NORMALS: normocephalic, atraumatic, hearing grossly normal bilaterally and moist oral mucous membranes HEAD & SCALP: normocephalic and atraumatic Eye: COMMON NORMALS: Equal, round and reactive pupils present, EOMs intact bilaterally and conjunctivae normal CONJUNCTIVA: Yes conjunctivae normal PUPIL: Yes Equal, round and reactive pupils present Neck/C-Spine: COMMON NORMALS: full ROM GENERAL: Yes normal visual inspection and Yes trachea midline Chest: CHEST: Yes Symmetrical chest wall rise Resp: COMMON NORMALS: normal respiratory effort, No retractions, No use of accessory muscles and clear to auscultation bilaterally EFFORT & INSPECTION: Yes able to speak in complete sentences, Yes symmetric chest movement and No tachypneic AUSCULTATION: clear to auscultation bilaterally OTHER: -on RA Cardio: COMMON NORMALS: regular rate, regular rhythm, S1 normal heart sound present, S2 normal heart sound present and No murmurs present (Cardio) RATE: regular rate RHYTHM: regular rhythm HEART SOUNDS: S1 normal heart sound present and S2 normal heart sound present GI: COMMON NORMALS: Normal to inspection, nondistended, normoactive bowel sounds present, Soft to palpation and non-tender PALPATION: Yes Soft to palpation Extremity: COMMON NORMALS: normal to inspection, full ROM, no clubbing, cyanosis or edema and no pedal edema Neuro: COMMON NORMALS: patient oriented x3, moves all extremities, no focal motor deficits and no sensory deficits noted SENSORIUM/ORIENTATION: Yes alert Psych: COMMON NORMALS: mental status grossly normal, Normal thought process present, cooperative, normal affect and speech normal SPEECH: Yes normal speech THOUGHT PROCESS: Normal thought process present Skin: COMMON NORMALS: no rashes or lesions noted, no jaundice, no petechiae and no mottling GENERAL SKIN EXAM: no rashes or lesions noted Discharge Data Data Completed and Pending: Completed Studies During Hospitalization Category Date Time Status XR chest 1V janna ble [id number] Urgent Exams 10/27/19 09:04 Completed Labs from last 24 hours 10/28/19 10/28/19 10/28/19 03:37 03:37 03:37 WBC 11.1 H RBC 4.54 Hgb 13.6 Hct 41.2 L MCV 90.7 MCH 30.0 MCHC 33.0 RDW 12.1 Plt Count 218 MPV 11.5 H Neut % (Auto) 57.4 Lymph % (Auto) 32.6 [place] % (Auto) 7.5 Eos % (Auto) 1.6 Baso % (Auto) 0.4 Neut # (Auto) 6.4 Lymph # (Auto) 3.6 [place] # (Auto) 0.8 Eos # (Auto) 0.2 Baso # (Auto) 0.1 Nucleated RBC % (a uto) 0 Nucleated RBCs # 0.0 Sodium 140 Potassium 3.9 Chloride 105 Carbon Dioxide 27 Anion Gap 11.9 BUN 7 Creatinine 0.7 GFR Calculation 138.6 H Glucose 100 POC Glucose Estimat Average Gl ucose 108 Hemoglobin A1c 5.4 Calculated Osmolal ity 286 Calcium 8.5 Magnesium 2.1 Total Bilirubin AST ALT Alkaline Phosphata se Creatine Kinase Total Protein Albumin Globulin Urine Color Urine Appearance Urine pH Ur Specific Gravit y Urine Protein Urine Glucose (UA) Urine Ketones Urine Blood Urine Nitrate Urine Bilirubin Urine Urobilinogen Ur Leukocyte Fiorella ase Salicylates Urine Opiates Scre en Acetaminophen Ur Barbiturates Sc reen Ur Phencyclidine S crn Ur Amphetamines Sc reen U Benzodiazepines Scrn Urine Cocaine Scre en U Marijuana (THC) Screen Ethyl Alcohol 10/27/19 10/27/19 10/27/19 13:08 12:12 12:12 WBC RBC Hgb Hct MCV MCH MCHC RDW Plt Count MPV Neut % (Auto) Lymph % (Auto) [place] % (Auto) Eos % (Auto) Baso % (Auto) Neut # (Auto) Lymph # (Auto) [place] # (Auto) Eos # (Auto) Baso # (Auto) Nucleated RBC % (a uto) Nucleated RBCs # Sodium Potassium Chloride Carbon Dioxide Anion Gap BUN Creatinine GFR Calculation Glucose POC Glucose 98 Estimat Average Gl ucose Hemoglobin A1c Calculated Osmolal ity Calcium Magnesium Total Bilirubin AST ALT Alkaline Phosphata se Creatine Kinase Total Protein Albumin Globulin Urine Color Yellow Urine Appearance Clear Urine pH 5 Ur Specific Gravit y 1.030 Urine Protein Neg Urine Glucose (UA) 2+ Urine Ketones Negative Urine Blood Neg Urine Nitrate Negative Urine Bilirubin Neg Urine Urobilinogen Norm Ur Leukocyte Fiorella ase Negative Salicylates Urine Opiates Scre en Negative Acetaminophen Ur Barbiturates Sc reen Negative Ur Phencyclidine S crn Negative Ur Amphetamines Sc reen Positive H U Benzodiazepines Scrn Negative Urine Cocaine Scre en Negative U Marijuana (THC) Screen Positive H Ethyl Alcohol 10/27/19 10/27/19 10/27/19 08:45 08:45 08:45 WBC 14.2 H RBC 5.00 Hgb 14.6 Hct 44.4 MCV 88.8 MCH 29.2 MCHC 32.9 RDW 11.9 L Plt Count 283 MPV 11.1 H Neut % (Auto) 59.1 Lymph % (Auto) 31.9 [place] % (Auto) 6.6 Eos % (Auto) 1.4 Baso % (Auto) 0.4 Neut # (Auto) 8.3 H Lymph # (Auto) 4.5 [place] # (Auto) 0.9 Eos # (Auto) 0.2 Baso # (Auto) 0.1 Nucleated RBC % (a uto) 0 Nucleated RBCs # 0.0 Sodium 134 L Potassium 3.4 L Chloride 96 L Carbon Dioxide 26 Anion Gap 15.4 BUN 10 Creatinine 1.1 GFR Calculation 82.2 L Glucose 301 H POC Glucose Estimat Average Gl ucose Hemoglobin A1c Calculated Osmolal ity 285 Calcium 8.5 Magnesium Total Bilirubin 0.7 AST 21 ALT 28 Alkaline Phosphata se 80 Creatine Kinase 66 Total Protein 6.7 Albumin 3.8 Globulin 2.9 Urine Color Urine Appearance Urine pH Ur Specific Gravit y Urine Protein Urine Glucose (UA) Urine Ketones Urine Blood Urine Nitrate Urine Bilirubin Urine Urobilinogen Ur Leukocyte Fiorella ase Salicylates < 0.3 L Urine Opiates Scre en Acetaminophen < 5.0 L Ur Barbiturates Sc reen Ur Phencyclidine S crn Ur Amphetamines Sc reen U Benzodiazepines Scrn Urine Cocaine Scre en U Marijuana (THC) Screen Ethyl Alcohol < 10 Vitals: Last Vital Signs Temp 98.8 F 10/28/19 06:00 Pulse 60 10/28/19 06:00 Resp 16 10/28/19 06:00 BP 98/58 10/28/19 03:00 Pulse Ox 98 10/28/19 06:00 Discharge Plan Discharge Patient Disposition: Home, Self-Care Condition: Fair Prescriptions: Continued No Known Home Medications RF: 0 Discharge Orders: Discharge Order (Routine); Ordered 10/28/19 Ordered By: Niesha Mccoy Discharge Diet: Usual diet Discharge Activity: Increase activity as tolerated Discharge Attestations Time Spent in Discharge Care*: less than 30 min Specific Discharge Activities: Specific discharge activities: educating patient, educating and/or supporting family/caregiver, documenting/other paperwork and evaluating patient/reviewing data Status at Discharge: Cognitive status at discharge: cognitively intact , Behavioral status at discharge: cooperative , Functional status at discharge: independent ambulation Overall status at discharge: patient is back to baseline Quality Metrics Clinical Quality Measures During this hospital stay, did patient experience: None Coding Level of Care Code Acute Environmental Protection Forester for Chg Fwd Diagnoses Altered level of consciousness R40.4 Substance abuse F19.10 Acute hyperglycemia R73.9
--- NOTE | 2019-10-28 10:16 | PC.NURSE ---
pt louiseid,s x2 removed whole intact discharge instructions given to pt at this time and released to his care
--- NOTE | 2019-10-31 12:44 | PC.RESP ---
SMOKING CESSATION INFORMATION SENT TO PATIENT.
== END 2019-10-28 09:20 | disposition home or self-care (01) ==
LOC: ER 13:32 → ICU 16:07
PROVIDERS: Family Medicine; Admitting Provider Family Medicine; Visit Provider Family Medicine
DX: R40.4 Transient alteration of awareness (principal); F12.90 Cannabis use, unspecified, uncomplicated; R73.9 Hyperglycemia, unspecified; F17.210 Nicotine dependence, cigarettes, uncomplicated
CPT/HCPCS: 12345; 36415; 36416; 51701; 71045; 80048; 80053; 80306; 80307; 81003; 82550; 82962; 83036; 83735; 85025; 93005; 96361; 96374; 96375; 96376; 99284; 99285; G0378; J2405; J7030

== ENCOUNTER 2021-05-21 02:12 | Observation (INO) | payer SELFPAY ==
[2021-05-21 02:26] VITALS: BP 141/85; PULSE 106; RESP 16; TEMP 36.7; O2SAT 99; BMI 27.1
--- NOTE | 2021-05-21 02:38 | W.ED.PSYCHS ---
HPI - Psych General: Chief Complaint: General Medical Stated Complaint: Psychotic Symptoms Time Seen by Provider: 05/21/21 02:38 History of Present Illness: HPI Narrative: Mr. Min is a 25-year-old gentleman with history of substance abuse who presents emerged department due to agitation. He reportedly was involved in a verbal altercation with his ex-girlfriend and was served a restraining order. He reports that his girlfriend is living with someone else. He came here because he was agitated and angry about the situation and did not know what else to do. He denies suicidal or homicidal ideation. He denies other medical complaints. He denies injuries. Intensity of symptoms is moderate. Course has persisted. No other specific changes in health, exacerbating, or relieving factors identified. The patient later endorsed homicidal ideation. MD complaint: other Onset (ago): hour(s) Relieving factors: none Exacerbating factors: none Context: recent drug abuse Associated psychiatric symptoms: none Associated symptoms: Reports no associated symptoms Treatments prior to arrival: none Review of Systems General: Reports: 10 or more systems reviewed and unremarkable except in HPI and below PFSH ED PFSH: Medical History Substance abuse -hx of methamphetamine abuse, THC use, chronic smoker -nicotine replacement therapy Surgical History H/O elbow surgery Left Hx of tonsillectomy Family History Mother Thyroid disease Father Ulcerative colitis Denies family history of Diabetes CAD (coronary artery disease) Cancer Hypertension Stroke Social History Smoking and tobacco status: current every day smoker cigarettes Packs smoked per day: 1 Alcohol intake: current Alcohol intake frequency: 3 or more drinks per day Alcohol type: beer Housing: Homeless Physical Exam Const: COMMON NORMALS: alert GENERAL APPEARANCE: cooperative and well developed HENMT: COMMON NORMALS: normocephalic and atraumatic HEAD & SCALP: normocephalic and atraumatic Eye: COMMON NORMALS: conjunctivae normal CONJUNCTIVA: Yes conjunctivae normal SCLERA: sclerae normal Neck/C-Spine: COMMON NORMALS: supple GENERAL: Yes trachea midline Resp: COMMON NORMALS: normal respiratory effort EFFORT & INSPECTION: Yes able to speak in complete sentences Cardio: COMMON NORMALS: regular rate and regular rhythm RATE: regular rate RHYTHM: regular rhythm GI: COMMON NORMALS: Soft to palpation PALPATION: Yes Soft to palpation and No Tenderness to palpation present (GI) PERCUSSION: normal to percussion Extremity: GENERAL: Yes normal exam except as noted and No edema Neuro: COMMON NORMALS: moves all extremities SENSORIUM/ORIENTATION: Yes alert and No Orientation impaired Psych: COMMON NORMALS: mental status grossly normal and Normal thought process present THOUGHT PROCESS: Normal thought process present Course ED course: - Patient was seen and evaluated by me at bedside - Patient placed on cardiac monitors, IV access obtained - Initial evaluation notable for exam as above - Labs notable for mild leukocytosis, amphetamine and marijuana screen positive without other positive toxic ingestions. Source of leukocytosis is unclear however in the absence of identified infectious symptoms low clinical suspicion for further medical evaluation at this time. - Upon serial reexamination after treatment the patient was similar however the patient subsequently identified homicidal ideation after being told that he would be discharged - Based on patient history, evaluation, labs, and imaging as interpreted the most likely cause of the patient's condition is homicidal ideation versus malingering - Psychiatry service contacted and patient to be admitted. Based on ED evaluation at this point there is no obvious condition that would preclude the patient from inpatient management of psychiatric concerns. - Patient was admitted without further deterioration or significant events. Note: Click bubbles or prepopulated lindsey in note writing are used for assistance with data collection and billing and are inherently more limited than narrative and other text portions of this note. Please use narrative for additional clinical history and defer to narrative/free test for any case of contradictory information. If information appears in only free text or click bubble it should be considered present or absent as reported. Please contact note travel writer for clarifications of clinical information or contradictory information. MDM is a brief summary, contradictory or erroneous seeming information should be clarified and full note should be reviewed. Vital Signs: Vital signs: Vital Signs Temperature 97.8 F 05/21/21 05:52 Pulse Rate 87 05/21/21 05:52 Respiratory Rate 15 05/21/21 15:45 Blood Pressure 129/88 05/21/21 05:52 Pulse Oximetry 100 05/21/21 05:52 MDM - Psych MDM Narrative: Medical decision making narrative: 25-year-old male presenting to the emergency department for somewhat unclear reasons, essentially endorses feeling angry and did not want to do anything out of anger so came to the emergency department. Initially he denied suicidal or homicidal ideation however when told that he was being discharged he endorsed homicidal ideation. Discussed with psychiatry, patient will be admitted for [id number] evaluation. Medical Records: Attestation: I reviewed the patient's medical records. Lab Data: Attestation: I reviewed the patient's lab results. Labs: Lab Results 05/21/21 05/21/21 05/21/21 02:55 02:55 03:00 WBC 13.7 10^3/uL H 10 ^3/uL (4.0-10.0) RBC 5.29 10^6/uL 10^6 /uL (4.1-5.3) Hgb 15.7 g/dL g/dL (11.7-16.6) Hct 46.2 % % (42.0-52.0) MCV 87.3 fl fl (80-94) MCH 29.7 pg pg (28.0-34.0) MCHC 34.0 g/dL g/dL (30.0-36.0) RDW 11.6 % L % (12.1-15.1) Plt Count 355 10^3/cmm 10^3 /cmm (130-400) MPV 10.3 fL fL (7.4-10.4) Neut % (Auto) 70.6 % % Lymph % (Auto) 22.5 % % [place] % (Auto) 5.4 % % Eos % (Auto) 0.7 % % Baso % (Auto) 0.4 % % Neut # (Auto) 9.67 10^3/uL H 10 ^3/uL (1.8-7.7) Lymph # (Auto) 3.1 10^3/uL 10^3/ uL (0.8-4.8) [place] # (Auto) 0.7 10^3/uL 10^3/ uL (0.2-0.9) Eos # (Auto) 0.1 10^3/uL 10^3/ uL (0.0-0.8) Baso # (Auto) 0.1 10^3/uL 10^3/ uL (0.0-0.1) Nucleated RBC % (a uto) 0 % % Nucleated RBCs # 0.0 /100WBC /100W BC Sodium Potassium Chloride Carbon Dioxide Anion Gap BUN Creatinine GFR Calculation Glucose Calculated Osmolal ity Calcium Total Bilirubin AST ALT Alkaline Phosphata se Total Protein Albumin Globulin TSH Urine Color Yellow (Yellow) Urine Appearance Clear (CLEAR) Urine pH 5 (5-7) Ur Specific Gravit y 1.020 (1.005-1.030) Urine Protein Neg (Negative) Urine Glucose (UA) Norm (Normal) Urine Ketones Negative (Negative) Urine Blood Neg (Negative) Urine Nitrate Negative (Negative) Urine Bilirubin Neg (Negative) Urine Urobilinogen 1 mg/dL H mg/dL (Negative) Ur Leukocyte Fiorella ase Negative (Negative) Salicylates Urine Opiates Scre en Negative ng/mL ng /mL (Negative) Acetaminophen Ur Barbiturates Sc reen Negative ng/mL ng /mL (Negative) Ur Phencyclidine S crn Negative ng/mL ng /mL (Negative) Ur Amphetamines Sc reen Positive ng/mL H ng/mL (Negative) U Benzodiazepines Scrn Negative ng/mL ng /mL (Negative) Urine Cocaine Scre en Negative ng/mL ng /mL (Negative) U Marijuana (THC) Screen Positive ng/mL H ng/mL (Negative) Ethyl Alcohol 05/21/21 03:00 WBC RBC Hgb Hct MCV MCH MCHC RDW Plt Count MPV Neut % (Auto) Lymph % (Auto) [place] % (Auto) Eos % (Auto) Baso % (Auto) Neut # (Auto) Lymph # (Auto) [place] # (Auto) Eos # (Auto) Baso # (Auto) Nucleated RBC % (a uto) Nucleated RBCs # Sodium 141 mmol/L mmol/L (136-145) Potassium 4.1 mmol/L mmol/L (3.5-5.1) Chloride 104 mmol/L mmol/L (98-107) Carbon Dioxide 23 mmol/L mmol/L (22-29) Anion Gap 18.1 (5-19) BUN 10 mg/dL mg/dL (6-20) Creatinine 1.0 mg/dL mg/dL (0.7-1.2) GFR Calculation 91.0 mL/min mL/mi n (90-130) Glucose 101 mg/dL mg/dL (65-115) Calculated Osmolal ity 291 mOsm/kg mOsm/ kg (285-295) Calcium 9.9 mg/dL mg/dL (8.5-10.5) Total Bilirubin 1.1 mg/dL mg/dL (0.15-1.2) AST 17 U/L U/L (0-40) ALT 20 U/L U/L (0-41) Alkaline Phosphata se 95 IU/L IU/L (40-130) Total Protein 6.9 g/dL g/dL (6.6-8.7) Albumin 4.1 g/dL g/dL (3.5-5.2) Globulin 2.8 g/dL g/dL (1.3-4.6) TSH 2.20 uIU/mL uIU/m L (0.27-4.20) Urine Color Urine Appearance Urine pH Ur Specific Gravit y Urine Protein Urine Glucose (UA) Urine Ketones Urine Blood Urine Nitrate Urine Bilirubin Urine Urobilinogen Ur Leukocyte Fiorella ase Salicylates < 0.3 mg/dL L mg/ dL (3-10) Urine Opiates Scre en Acetaminophen < 5.0 ug/mL L ug/ mL (10-30) Ur Barbiturates Sc reen Ur Phencyclidine S crn Ur Amphetamines Sc reen U Benzodiazepines Scrn Urine Cocaine Scre en U Marijuana (THC) Screen Ethyl Alcohol < 10 mg/dL mg/dL (0-10) Discharge Plan Discharge Patient Disposition: Placed in Observation Admit Provider: Mathew Metcalf Clinical Impression: Agitation, Amphetamine or stimulant drug abuse Coding Level of Care Code 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
[2021-05-21 02:56] LABS: Add Urine Microscopic? NO; Charge for UA Resulting for Rev
[2021-05-21 03:00] LABS: Bilirubin Urine Neg (Negative); Blood Urine Neg (Negative); Glucose Urine UA Norm (Normal); Ketones Urine Negative (Negative); Leukocyte Esterase Urine Negative (Negative); Nitrate Urine Negative (Negative); Protein Urine Neg (Negative); Urine Appearance Clear (CLEAR); Urine Color Yellow (Yellow); Urobilinogen Urine 1 mg/dL (Negative); pH Urine 5 (5-7)
[2021-05-21 03:07] LABS: Amphetamines Screen Urine Positive (Negative); Barbiturates Screen Urine Negative (Negative); Benzodiazepines Screen Urine Negative (Negative); Cocaine Screen Urine Negative (Negative); Opiate Screen Urine Negative (Negative); PCP Screen Urine Negative (Negative); THC Screen Urine Positive (Negative)
[2021-05-21 03:14] LABS: Basophils # 0.1 10^3/uL (0.0-0.1); Basophils % 0.4 %; Eosinophils # 0.1 10^3/uL (0.0-0.8); Eosinophils % 0.7 %; Hematocrit 46.2 % (42.0-52.0); Hemoglobin 15.7 g/dL (11.7-16.6); Lymphocytes # 3.1 10^3/uL (0.8-4.8); Lymphocytes % 22.5 %; Mean Corpuscular Hemoglobin 29.7 pg (28.0-34.0); Mean Corpuscular Volume 87.3 fl (80-94); Mean Platelet Volume 10.3 fL (7.4-10.4); Monocytes # 0.7 10^3/uL (0.2-0.9); Monocytes % 5.4 %; Neutrophils # 9.67 10^3/uL (1.8-7.7); Neutrophils % 70.6 %; Nucleated Red Blood Cells % 0 %; Platelet Count 355 10^3/cmm (130-400); Red Blood Count 5.29 10^6/uL (4.1-5.3); Red Cell Distribution Width 11.6 % (12.1-15.1); White Blood Count 13.7 10^3/uL (4.0-10.0)
[2021-05-21 03:51] LABS: Alanine Aminotransferase 20 U/L (0-41); Albumin Level 4.1 g/dL (3.5-5.2); Alkaline Phosphatase 95 IU/L (40-130); Anion Gap 18.1 (5-19); Aspartate Amino Transferase 17 U/L (0-40); Blood Urea Nitrogen 10 mg/dL (6-20); Calcium 9.9 mg/dL (8.5-10.5); Carbon Dioxide 23 mmol/L (22-29); Chloride 104 mmol/L (98-107); Globulin 2.8 g/dL (1.3-4.6); Glucose 101 mg/dL (65-115); Osmolality Calculated 291 mOsm/kg (285-295); Potassium 4.1 mmol/L (3.5-5.1); Sodium 141 mmol/L (136-145); Total Bilirubin 1.1 mg/dL (0.15-1.2); Total Protein 6.9 g/dL (6.6-8.7)
[2021-05-21 04:02] LABS: Acetaminophen < 5.0 ug/mL (10-30); Alcohol Level < 10 mg/dL (0-10); Salicylate < 0.3 mg/dL (3-10)
[2021-05-21 04:35] VITALS: BP 140/75; RESP 18; O2SAT 97
[2021-05-21 05:52] VITALS: BP 129/88; BP 140/75; PULSE 87; RESP 15; RESP 18; TEMP 36.6; O2SAT 100; O2SAT 97
[2021-05-21 06:00] VITALS: RESP 15
--- NOTE | 2021-05-21 12:19 | W.PM.NPUH&PS ---
Providers/Chief Complaint Admitting Physician: Mathew Metcalf MD Chief Complaint: Psychotic Symptoms HPI NPU History of Present Illness Cain Min is a 25 year old male who presented to the ED with the following report: Chief Complaint: General Medical Stated Complaint: Psychotic Symptoms Time Seen by Provider: 05/21/21 02:38 History of Present Illness:?? HPI Narrative: Mr. Min is a 25-year-old gentleman with history of substance abuse who presents emerged department due to agitation.? He reportedly was involved in a verbal altercation with his ex-girlfriend and was served a restraining order.? He reports that his girlfriend is living with someone else.? He came here because he was agitated and angry about the situation and did not know what else to do.? He denies suicidal or homicidal ideation.? He denies other medical complaints.? He denies injuries.? Intensity of symptoms is moderate.? Course has persisted.? No other specific changes in health, exacerbating, or relieving factors identified. The patient later endorsed homicidal ideation. complaint: other Onset (ago): hour(s) Relieving factors: none Exacerbating factors: none Context: recent drug abuse Associated psychiatric symptoms: none Associated symptoms: Reports no associated symptoms Treatments prior to arrival: none He was admitted to the neuropsychiatric unit for definitive treatment of those issues. He presents today reporting that he had a conflict with his girlfriend. He is known to [facility] from previous treatment back in 2014. Seen both inpatient and that year and had an outpatient appointment as well. In those documents it endorses that he does struggle with addiction and did back then as well. He knows that he has active addiction but tried to downplay his current use and what role he could play his report of what transpired with his girlfriend. He presents today saying that there is another individual that comes to his place almost before he got there but he could not describe the person he did not explain why it would go down like that exactly. He reports that by his estimation his addiction is going better. He endorses smoking cigarettes, denies significant alcohol use, but does report that he smokes marijuana regularly and has recently slipped up though he endorses a desire not to use methamphetamine at all. His UDS was positive for cannabis and methamphetamine. He is not however willing to make a commitment to any type of inpatient or outpatient treatment and he was focused on the fact that he is not suicidal and he is a voluntary patient and that he would like to leave. He discussed that he had a safe place to go with his brother and we agreed that if we could speak with his brother we would be able to possibly come to a conclusion for a safe discharge. We discussed medicine alternatives for different Internet and he understood, but was not open to those interventions and agreed to proceed as is documented in this note. Psychiatric history: As above. Substance abuse history: As above. Family history: He did not report any significant family history but at this point with clearly not engaged in the interview and was most focused on discharge Developmental history: He denied any contributory issues. Psychosocial history: He reports that he does have a couple brothers which was noted in the previous note and reports that he has been getting back to work and wants to discharge the next 3 continue working. Legal history: He has been arrested and had legal issues but would not go into detail. Medical history: He denies any specific issues please see ED note for additional details. Meds NPU Home Medications Medication Instructions Recorded Confirmed Last Taken Type No Known Home Medications 10/27/19 10/27/19 Unknown History Allergies Allergy/AdvReac Type Severity Reaction Status Date / Time No Known Allergies Allergy Verified 10/27/19 09:05 PFS NPU PFSH: Medical History Substance abuse -hx of methamphetamine abuse, THC use, chronic smoker -nicotine replacement therapy Surgical History H/O elbow surgery Left Hx of tonsillectomy Family History Mother Thyroid disease Father Ulcerative colitis Denies family history of Diabetes CAD (coronary artery disease) Cancer Hypertension Stroke Social History Smoking and tobacco status: current every day smoker cigarettes Packs smoked per day: 1 Alcohol intake: current Alcohol intake frequency: 3 or more drinks per day Alcohol type: beer Housing: Homeless Mental Status Exam MSE Comments: This is a well-nourished well-developed white male in hospital with adequately and eye contact. No abnormal movements except for mild psychomotor agitation. Mostly cooperative with exam in occasional mild distress. Speech was decreased rate and volume. Mood described as fine, affect somewhat irritable. Thought process organized. Thought content: Patient denied suicidal or homicidal ideation, there are no delusions reported noted, he denied any auditory or visual hallucinations. Attention and concentration appeared intact and memory was mostly reliable but none were formally tested. He is alert and oriented x3. Insight and judgment appeared fair impulse control appeared limited. Vitals/I&O/Wt Last Vital Signs Temp 97.8 F 05/21/21 05:52 Pulse 87 05/21/21 05:52 Resp 15 05/21/21 15:45 BP 129/88 05/21/21 05:52 Pulse Ox 100 05/21/21 05:52 Data NPU : 05/21/21 03:00 05/21/21 03:00 A&P Assessment and plan (1) Amphetamine or stimulant drug abuse: Status: Acute (2) Agitation: Status: Acute (3) Partner relational problem: Status: Acute (4) Psychosis: Status: Acute Plan This is a 25-year-old white male with a long history of addiction specific methamphetamine and some depression who presents with partner relational issues who is not interested in staying and is trying to discharge as soon as possible. 1. Continue current medication. Patient not interested in medication. Likely some of his thoughts of what happened with significant other were related to some methamphetamine induced psychosis which appears to have resolved. 2. Continue every 15 minute checks for safety. 3. Encourage individual, group and milieu therapies. 4. Encourage sober living treatment after discharge at the highest level of care to which he is willing to commit. 5. Patient has been attempting to get his brother to allow him to come there and since he does not have a place to stay but now mother is involved and might be a safe place for him to go. At this point no credible lethality is apparent we will likely allow him to discharge AMA once he finds a place and some transportation. Involuntary Hold Information 96 Hour Hold: 96 Hour Involuntary Admission: No Attestations NPU Medical Necessity Statement*: Inpatient hospitalization is medically necessary and the clinically appropriate intervention at this time. We will monitor medication to make changes as indicated. Patient will be in the hospital for over two midnights. Likely length of stay 3 to 5 days. Patient would benefit from this hospitalization but is absent credible lethality and want to discharge AMA if he chooses. Coding Level of Care Code Acute Vp Human Resources for g Fwd Diagnoses Amphetamine or stimulant drug abuse F15.10 Agitation R45.1 Partner relational problem Z63.0 Psychosis F29
--- NOTE | 2021-05-21 12:22 | NPU.GN ---
[facility] Unit Group Topic:Depression [place] General Mood of Group: Cain did not attend group today and wanted to sleep.
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
[2021-05-21 15:45] VITALS: RESP 15
== END 2021-05-21 15:52 | disposition home or self-care (01) ==
LOC: ER 05:41 → NP 09:24
PROVIDERS: Nurse Practitioner Family; Admitting Provider Psychiatry & Neurology Psychiatry; Emergency Provider Emergency Medicine; Visit Provider Psychiatry & Neurology Psychiatry
DX: R45.850 Homicidal ideations (principal); F15.11 Other stimulant abuse, in remission; F17.210 Nicotine dependence, cigarettes, uncomplicated
CPT/HCPCS: 80053; 80306; 80307; 81003; 84443; 85025; 97150; 97165; 99285; G0378

== ENCOUNTER → 2022-09-19 11:31 | Outpatient (BNVA) | payer OTHER, SELFPAY | PROVIDERS: Visit Provider Nurse Practitioner Psychiatric/Mental Health | DX: Z79.899 Other long term (current) drug therapy (principal) | CPT/HCPCS: 80053; 80061; 83036 ==

== ENCOUNTER 2022-12-08 16:26 | Emergency (ER) | payer SELFPAY ==
[2022-12-08] VITALS (8 sets, daily range): BP systolic 104–138; BP diastolic 63–89; PULSE 67–106; RESP 16–18; TEMP 37.1; O2SAT 97–100; BMI 27.8
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
[2022-12-08] MEDS: sodium chloride 0.9% 1,000 ML 999 ML IV (16:41)
[2022-12-08 16:47] LABS: Basophils # 0.1 10^3/uL (0.0-0.1); Basophils % 0.5 %; Eosinophils # 0.2 10^3/uL (0.0-0.8); Eosinophils % 2.4 %; Hematocrit 44.4 % (42.0-52.0); Hemoglobin 14.8 g/dL (11.7-16.6); Lymphocytes # 2.8 10^3/uL (0.8-4.8); Lymphocytes % 28.1 %; Mean Corpuscular HGB Conc 33.3 g/dL (30.0-36.0); Mean Corpuscular Hemoglobin 28.9 pg (28.0-34.0); Mean Corpuscular Volume 86.7 fl (80-94); Mean Platelet Volume 10.6 fL (7.4-10.4); Monocytes # 0.8 10^3/uL (0.2-0.9); Monocytes % 8.3 %; Neutrophils # 5.94 10^3/uL (1.8-7.7); Neutrophils % 60.2 %; Nucleated Red Blood Cells % 0 %; Platelet Count 274 10^3/cmm (130-400); Red Blood Count 5.12 10^6/uL (4.1-5.3); White Blood Count 9.9 10^3/uL (4.0-10.0)
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
[2022-12-08 17:24] LABS: Alanine Aminotransferase 35 U/L (0-41); Albumin Level 4.4 g/dL (3.5-5.2); Alkaline Phosphatase 101 U/L (40-130); Anion Gap 13.7 (5-19); Aspartate Amino Transferase 22 U/L (0-40); Blood Urea Nitrogen 17 mg/dL (6-20); Calcium 9.7 mg/dL (8.5-10.5); Carbon Dioxide 25 mmol/L (22-29); Chloride 107 mmol/L (98-107); Globulin 2.4 g/dL (1.3-4.6); Glomerular Filtration Rate 66.2 mL/min (90-130); Glucose 130 mg/dL (65-115); Osmolality Calculated 297 mOsm/kg (285-295); Potassium 3.7 mmol/L (3.5-5.1); Sodium 142 mmol/L (136-145); Total Bilirubin 0.7 mg/dL (0.15-1.2); Total Protein 6.8 g/dL (6.6-8.7)
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
[2022-12-08] MEDS: HYDROcodone-acetaminophen 5-325 mg Tablet 1 TAB PO (20:14)
--- NOTE | 2022-12-09 08:20 | DCPLANNER ---
manager solution had message to schedule a follow up appointment for patient with neuro surgery at [facility] in [place]. manager solution faxed patients information to the clinic, it will be reviewed. Clinic will call patient with appointment information.
--- NOTE | 2022-12-09 08:30 | DCPLANNER ---
Addendum entered by Elysia Spencer 12/17/22 09:56: Patient had an appointment scheduled - this appointment was cancelled Original Note: reservations manager had message to schedule a follow up appointment for patient with ortho. reservations manager sent patients information to the front office staff at ortho. Patients information will be printed and reviewed. Clinic will call patient with appointment information.
== END 2022-12-08 20:26 | disposition home or self-care (01) ==
PROVIDERS: Family Medicine; Emergency Provider Emergency Medicine
DX: S12.391A Other nondisplaced fracture of fourth cervical vertebra, initial encounter for closed fracture (principal); S12.691A Other nondisplaced fracture of seventh cervical vertebra, initial encounter for closed fracture; S52.512A Displaced fracture of left radial styloid process, initial encounter for closed fracture; F17.210 Nicotine dependence, cigarettes, uncomplicated; V29.99XA Rider (driver) (passenger) of other motorcycle injured in unspecified traffic accident, initial encounter; S00.31XA Abrasion of nose, initial encounter; S00.81XA Abrasion of other part of head, initial encounter
CPT/HCPCS: 29125; 70450; 70496; 70498; 71045; 71260; 72125; 73030; 73110; 74177; 80053; 85025; 96360; 96361; 99285; J7030; Q9967